=== PATIENT | female | born 1975 | race Caucasian/White ===

== ENCOUNTER → 2017-08-03 | Outpatient (CLI) | payer OTHER ==
--- NOTE | 2017-08-03 16:15 | XCELERA REPORT ---
[address] [address] Lower Extremity Venous Evaluation Name: SHIVAM GAO Age: 42 yrs Gender: Female : 1975 Patient Status: Outpatient Patient Location: Study Date: 08/03/2017 11:46 AM Procedure: Color flow and duplex imaging of the veins of the left lower extremity as well as the right Common Femoral vein. Reason For Study: SWELLING Ordering Physician: CONSTANTINO BACA Performed By: Silva Fung Right Sided Venous Evaluation The right common femoral vein is fully compressible. Spontaneous and phasic flow is present in the right common femoral vein. Left Sided Venous Evaluation Normal vessel filling wall to wall, compression and augmentation as well as Colour flow down to the infrageniculate veins. Interpretation Summary No duplex evidence of DVT or obstruction in the left lower extremity nor in the right Common Femoral vein. : CONSTANTINO BACA > Paco Mattson
== END ==
LOC: SP 11:39
PROVIDERS: ATTEND Internal Medicine
DX: R22.42 Localized swelling, mass and lump, left lower limb (principal)
CPT/HCPCS: 93971